=== PATIENT | female | born 1990 | race Caucasian/White ===

== ENCOUNTER 2018-03-02 03:21 | Emergency (ER) | payer MEDICAID ==
[~2018-03-02] VITALS: Ht 177.8 cm; Wt 140.2 kg
[2018-03-02 03:29] VITALS: Ht 177.8 cm; Wt 140.2 kg
[2018-03-02 04:47] VITALS: BP 141/80
== END 2018-03-02 04:48 | disposition home or self-care (01) ==
LOC: ED 03:21
DX: M54.5 Low back pain (principal); F17.200 Nicotine dependence, unspecified, uncomplicated; E66.9 Obesity, unspecified; Z68.41 Body mass index [BMI] 40.0-44.9, adult; Z71.6 Tobacco abuse counseling
CPT/HCPCS: 99406; J1885

== ENCOUNTER 2018-03-06 02:38 | Emergency (ER) | payer MEDICAID ==
[~2018-03-06] VITALS: Ht 170.2 cm; Wt 141.1 kg
[2018-03-06 02:43] VITALS: Ht 170.2 cm; Wt 141.1 kg
[2018-03-06 03:25] LABS: microscopic required? NO
[2018-03-06 03:33] LABS: UA SPECIFIC GRAVITY <=1.005 (1.005-1.035); urine erythrocyte NEGATIVE (NEGATIVE)
[2018-03-06 04:46] VITALS: BP 147/93
== END 2018-03-06 04:46 | disposition home or self-care (01) ==
LOC: ED 02:38
PROVIDERS: Emergency Medicine
DX: M54.41 Lumbago with sciatica, right side (principal)
CPT/HCPCS: J1100; J1885